=== PATIENT | male | born 1980 | race Caucasian/White ===

== ENCOUNTER 2018-08-22 22:20 | Emergency (ER) | END 2018-08-23 00:58 | disposition home or self-care (01) ==

== ENCOUNTER 2019-05-08 19:36 | Emergency (ER) | payer SELFPAY ==
[~2019-05-08] VITALS: Ht 182.9 cm; Wt 91.9 kg
[~2019-05-08 19:36] MED LIST: CYCL10TA7 PO; TRAM50TA2 PO
[2019-05-08 19:39] VITALS: Ht 182.9 cm; Wt 91.9 kg
[2019-05-08] MEDS ORDERED: ALBUTEROL 0.083% (NEB) 2.5 MG/3 ML AMP HHN STA (20:39)
[2019-05-08] MEDS ORDERED: predniSONE 20 MG TAB PO ONE (21:00)
[2019-05-08] MEDS ORDERED: PROMETHAZINE/CODEINE 5ML CUP PO ONE (21:00)
[2019-05-08] MEDS ORDERED: PROM5SYR2 PO (21:24)
[2019-05-08] MEDS ORDERED: PRED20TA PO (21:24)
[2019-05-08] MEDS ORDERED: AZIT250T PO (21:24)
[2019-05-08] MEDS ORDERED: ALBU18HF INHALATION (21:24)
--- NOTE | 2019-05-08 21:27 | ERD ---
ER Documentation Chief Complaint Chief Complaint cough/fever/congestion/body aches x 1 week. no sob HPI 38-year-old male presents with a one-week history of productive cough and possible wheezing. He has mild anterior pleuritic chest pain. Denies vomiting, abdominal pain, sustained chest pain. ROS All systems reviewed and are negative except as per history of present illness. Medications Home Meds Active Scripts Promethazine HCl/Codeine (Prometh-Codein 6.25-10 mg/5 ml) 5 Ml Syrup, 5 ML PO TID for 5 Days 4 oz Prov:ELIZABETH MCCOY MD 05/08/19 Azithromycin* (Zithromax*) 250 Mg Tablet, 250 MG PO .ZPACK DIRECTED, #6 TAB TAKE 500 MG (2 TABS) THE FIRST DAY THEN 250 MG (1 TAB) DAYS 2-5 Prov:ELIZABETH MCCOY MD 05/08/19 Albuterol Sulfate* (Ventolin HFA*) 18 Gm Hfa.aer.ad, 2 PUFF INHALATION Q4H, #1 INHALER Prov:ELIZABETH MCCOY MD 05/08/19 Prednisone* (Prednisone*) 20 Mg Tab, 40 MG PO DAILY for 4 Days, TAB Start May 09, 2019 Prov:ELIZABETH MCCOY MD 05/08/19 Tramadol HCl (Tramadol HCl) 50 Mg Tablet, 50 MG PO Q4 PRN for PAIN, #20 TAB Prov:CHEVY LOO 08/23/18 Cyclobenzaprine Hcl* (Cyclobenzaprine Hcl*) 10 Mg Tablet, 10 MG PO TID, #15 TAB Prov:CHEVY LOO 08/23/18 Allergies Allergies: Coded Allergies: No Known Drug Allergies (Verified Allergy, Unknown, 05/08/19) PMhx/Soc History of Surgery: Yes (L knee, appy ) Anesthesia Reaction: No Hx Neurological Disorder: No Hx Respiratory Disorders: No Hx Cardiac Disorders: No Hx Psychiatric Problems: No Hx Miscellaneous Medical Probl: No Hx Alcohol Use: No Hx Substance Use: No Hx Tobacco Use: Yes Smoking Status: Current every day smoker FmHx Family History: No diabetes, No coronary disease, No other Physical Exam Vitals Vital Signs Date Temp Pulse Resp B/P (MAP) Pulse Ox O2 O2 Flow FiO2 Time Delivery Rate 7/28/19 88 22 96 21 21:15 05/08/19 97.5 92 18 169/89 97 19:39 (115) Physical Exam Const: No acute distress Head: Atraumatic Eyes: Normal Conjunctiva ENT: Normal External Ears, Nose and Mouth. TM with redness and decreased light reflex. Neck: Full range of motion. No meningismus. Resp: Clear to auscultation bilaterally. Coarse breath sounds with rales. Wheezing diffusely without retractions. Cardio: Regular rate and rhythm, no murmurs Abd: Soft, non tender, non distended. Normal bowel sounds Skin: No petechiae or rashes Back: No midline or flank tenderness Ext: No cyanosis, or edema Neur: Awake and alert Psych: Normal Mood and Affect Results 24 hrs Current Medications Medications Dose Sig/Kimberly Start Time Status Last (Trade) Ordered Route PRN Stop Time Admin Dose Reason Admin Prednisone 60 mg ONCE ONCE 05/08/19 DC 05/08/19 (Prednisone) PO 21:00 20:52 05/08/19 21:01 Albuterol 5 mg ONCE STAT 05/08/19 DC 05/08/19 (Proventil HHN 20:39 21:15 0.083% (Neb)) 05/08/19 20:41 Promethazine 10 ml ONCE ONCE 05/08/19 DC 05/08/19 HCl/ PO 21:00 20:52 Codeine 05/08/19 21:01 (Phenergan/ Codeine) Procedures/MDM Patient presents with coughing and wheezing productive cough for the last week. He had fevers at home but no fever triage. He has no signs of pneumonia on exam, hypoxemia, signs of respiratory distress. He is given albuterol treatment, prednisone 60 mg by mouth. Patient states that he had a normal chest x-ray 4 months ago. Smoking Cessation Therapy: Pt. was lectured for greater than 3 minutes on the health risks of continued smoking and the benefits of cessation. Patient will be treated empirically with Zithromax given findings of otitis media,, prednisone, Ventolin, recommendations for primary care follow-up and return precautions and x-ray for symptoms despite treatment, new or worsening symptoms. The patient was stable with no new complaints during the ER course. Clinically, there is no current evidence to suggest meningitis, sepsis, acute abdomen, pneumonia, stroke, acute coronary syndrome, pulmonary embolism, aortic dissection or any other emergent condition appearing to require further evaluation or hospitalization. Patient counseled regarding my diagnostic impression and care plan. Prior to discharge all questions answered. Pt agrees with treatment plan and understands strict return precautions. Pt is instructed to follow up with primary care provider within 24-48 hours. Precautionary instructions provided including instructions to return to the ER if not improving or for any worsening or changing symptoms or concerns. Disclaimer: Inadvertent spelling and grammatical errors are likely due to EHR/dictation software use and do not reflect on the overall quality of patient care. Also, please note that the electronic time recorded on this note does not necessarily reflect the actual time of the patient encounter. Departure Diagnosis: Primary Impression: Wheezy bronchitis Additional Impression: Cough Condition: Stable Patient Instructions: Bronchitis With Wheezing (Adult), Smoking Cessation Additional Instructions: Recheck for new or worsening symptoms with primary care doctor. ELIZABETH MCCOY MD May 08, 2019 21:26
[2019-05-08 22:25] VITALS: BP 140/83; PULSE 87; RESP 18
== END 2019-05-08 22:25 | disposition home or self-care (01) ==
LOC: FTE 19:36
DX: J40 Bronchitis, not specified as acute or chronic (principal)
CPT/HCPCS: 94664; 99283; J7512